=== PATIENT | male | born 1995 | race Caucasian/White ===

== ENCOUNTER 2019-06-15 16:07 | Emergency (ER) | payer SELFPAY ==
[2019-06-15 18:58] LABS: INFLUENZA A NEGATIVE (NEGATIVE); INFLUENZA B NEGATIVE (NEGATIVE); RESPIRATORY SYNCTIAL VIRUS NEGATIVE (Negative)
[2019-06-15] MEDS ORDERED: Sodium Chloride 0.9% 1000 ML 1,000 ML IV STA (19:03)
[2019-06-15] MEDS ORDERED: Zofran 4 MG/2 ML VIAL IV STA (19:03)
[2019-06-15] MEDS ORDERED: TYLENOL 325 MG PO STA (19:03)
--- NOTE | 2019-06-15 19:10 | ERPHSYRPT ---
- History of Present Illness Patient Subjective Stated Complaint: pt reports fever, sore throat and generalized body aches for 3 days. pt reports painful swallowing. Triage Nursing Assessment: pt is aox3, pupils perrl, afebrile, resps easy non labored, cap refill < 3 seconds, pt throat appear reddened, tonsils absent, pt skin appears flushed. Timing/Duration: day(s) (4) Fever Severity: moderate Fever Therapy REHAB LIAISON: Ibuprofen, Acetaminophen Associated Symptoms: chest pain Hx Tetanus, Diphtheria Vaccination/Date Given: (unk) Hx Influenza Vaccination/Date Given: No Hx Pneumococcal Vaccination/Date Given: No Immunizations Up to Date: Yes <CORNELIA PAZ - Last Filed: 06/15/19 19:06> <OMAYRA JORDAN - Last Filed: 06/15/19 20:03> - History of Present Illness Time Seen by Provider: 06/15/19 17:00 Physician History: mcgrath, fever sick 4 days (CORNELIA PAZ) Allergies/Adverse Reactions: Penicillins Allergy (Mild, Verified 06/15/19 16:46) Home Medications: No Home Meds [No Home Meds] 06/23/12 [History] - Review of Systems Constitutional: Fever, Chills, Lethargy Eyes: No Symptoms Ears, Nose, & Throat: No Symptoms Respiratory: No Cough, No Dyspnea Cardiac: No Chest Pain, No Edema, No Syncope Abdominal/Gastrointestinal: No Abdominal Pain, No Nausea, No Vomiting, No Diarrhea Genitourinary Symptoms: No Dysuria Musculoskeletal: Arthralgias, Joint Swelling, Myalgias, No Neck Pain Skin: No Rash Neurological: Headache Psychological: No Symptoms Endocrine: No Symptoms Hematologic/Lymphatic: No Symptoms Immunological/Allergic: No Symptoms <CORNELIA PAZ - Last Filed: 06/15/19 19:06> - Past Medical History Pertinent Past Medical History: No Other Medical History: irritable bowel syndrome - Past Surgical History Past Surgical History: Yes Other Surgical History: TONSILS - Social History Smoking Status: Current every day smoker How long have you smoked: 2 Exposure to second hand smoke: Yes Drug Use: none Patient Lives Alone: No <CORNELIA PAZ - Last Filed: 06/15/19 19:06> - Physical Exam General Appearance: mild distress Eye Exam: PERRL/EOMI ENT Exam: normal ENT inspection, No pharyngeal erythema, No tonsillar exudate Neck Exam: supple, full range of motion, No meningismus Respiratory Exam: normal breath sounds, lungs clear, no respiratory distress Cardiovascular/Chest Exam: normal heart sounds Gastrointestinal/Abdominal Exam: soft, normal bowel sounds, No tenderness SpO2: 96 <CORNELIA PAZ - Last Filed: 06/15/19 19:06> - Nursing Vital Signs Nursing Vital Signs: Initial Vital Signs Temperature 99.6 F 06/15/19 16:36 Pulse Rate 99 H 06/15/19 16:36 Respiratory Rate 20 06/15/19 16:36 Blood Pressure 132/90 06/15/19 16:36 O2 Sat by Pulse Oximetry 97 06/15/19 16:36 Pain Scale Pain Intensity 10 - Course Nursing assessment & vital signs reviewed: Yes <CORNELIA PAZ - Last Filed: 06/15/19 19:06> - Radiology Exams Chest X-ray Interpretation: Reviewed by me (bronchiectasis) <OMAYRA JORDAN - Last Filed: 06/15/19 20:03> Ordered Tests: Active Orders 24 hr Category Date Time Status CHEST 2 VIEWS (PA AND LAT) Stat Exams 06/15/19 19:45 Taken BLOOD CULTURE Stat Lab 06/15/19 19:30 Received CBC W DIFF Stat Lab 06/15/19 19:25 Completed CMP Stat Lab 06/15/19 19:25 Completed CULTURE,URINE Stat Lab 06/15/19 19:39 Ordered Lactic Acid Stat Lab 06/15/19 19:30 Completed UA W/RFX UR CULTURE Stat Lab 06/15/19 19:39 Ordered Medication Summary Generic Name Dose Route Start Last Admin Trade Name Freq PRN Reason Stop Dose Admin Ceftriaxone Sodium 1,000 mg 06/15/19 19:58 Rocephin 1000 Mg Inj IM 06/15/19 19:59 STAT ONE Sodium Chloride 1,000 mls @ 999 mls/hr 06/15/19 19:03 06/15/19 19:35 Sodium Chloride 0.9% 1000 Ml IV 06/15/19 20:03 999 mls/hr .Q1H1M STA Administration Discontinued Medications Generic Name Dose Route Start Last Admin Trade Name Freq PRN Reason Stop Dose Admin Acetaminophen 650 mg 06/15/19 19:03 06/15/19 19:35 Tylenol 325 Mg PO 06/15/19 19:04 650 mg STAT STA Administration Acetaminophen Confirm 06/15/19 19:32 Tylenol 325 Mg Administered 06/15/19 19:33 Dose 650 mg .ROUTE .STK-MED ONE Acetaminophen Confirm 06/15/19 19:41 Tylenol 325 Mg Administered 06/15/19 19:42 Dose 325 mg .ROUTE .STK-MED ONE Sodium Chloride Confirm 06/15/19 19:32 Sodium Chloride 0.9% 1000 Ml Administered 06/15/19 19:33 Dose 1,000 mls @ ud .ROUTE .STK-MED ONE Ondansetron HCl 4 mg 06/15/19 19:03 06/15/19 19:35 Zofran 4 Mg/2 Ml Vial IV 06/15/19 19:04 4 mg STAT STA Administration Ondansetron HCl Confirm 06/15/19 19:31 Zofran 4 Mg/2 Ml Vial Administered 06/15/19 19:32 Dose 4 mg .ROUTE .STK-MED ONE Lab/Rad Data: Laboratory Result Diagrams 06/15/19 19:25 06/15/19 19:25 Laboratory Results 06/15/19 06/15/19 06/15/19 Range/Units 19:30 19:25 19:25 WBC 9.2 (4.0-10.5) K/mm3 RBC 5.57 (4.1-5.6) M/mm3 Hgb 17.9 (12.5-18.0) gm/dl Hct 51.3 H (42-50) % MCV 92.1 (78-100) fl MCH 32.1 H (26-32) pg MCHC 34.9 (32-36) g/dl RDW 12.6 (11.5-14.0) % Plt Count 168 (150-450) K/mm3 MPV 9.8 H (6-9.5) fl Gran % 72.7 H (36.0-66.0) % Eos # (Auto) 0.04 (0-0.5) Absolute Lymphs (auto) 1.38 (1.0-4.6) Absolute Monos (auto) 1.08 (0.0-1.3) Lymphocytes % 15.0 L (24.0-44.0) % Monocytes % 11.8 (0.0-12.0) % Eosinophils % 0.4 (0.00-5.0) % Basophils % 0.1 (0.0-0.4) % Absolute Granulocytes 6.67 (1.4-6.9) Basophils # 0.01 (0-0.4) Sodium 138 (137-145) mmol/L Potassium 4.0 (3.5-5.1) mmol/L Chloride 101 (98-107) mmol/L Carbon Dioxide 27 (22-30) mmol/L Anion Gap 14.1 (5-15) MEQ/L BUN 14 (9-20) mg/dL Creatinine 0.91 (0.66-1.25) mg/dL Estimated GFR > 60.0 ML/MIN Glucose 101 (74-106) mg/dL Lactic Acid 1.1 (0.4-2.0) Calcium 9.6 (8.4-10.2) mg/dL Total Bilirubin 0.90 (0.2-1.3) mg/dL AST 21 (17-59) U/L ALT 30 (0-50) U/L Alkaline Phosphatase 63 (38-126) U/L Serum Total Protein 8.5 H (6.3-8.2) g/dL Albumin 4.7 (3.5-5.0) g/dL Influenza Type A Ag (NEGATIVE) Influenza Type B Ag (NEGATIVE) RSV (PCR) (Negative) 06/15/19 Range/Units 18:19 WBC (4.0-10.5) K/mm3 RBC (4.1-5.6) M/mm3 Hgb (12.5-18.0) gm/dl Hct (42-50) % MCV (78-100) fl MCH (26-32) pg MCHC (32-36) g/dl RDW (11.5-14.0) % Plt Count (150-450) K/mm3 MPV (6-9.5) fl Gran % (36.0-66.0) % Eos # (Auto) (0-0.5) Absolute Lymphs (auto) (1.0-4.6) Absolute Monos (auto) (0.0-1.3) Lymphocytes % (24.0-44.0) % Monocytes % (0.0-12.0) % Eosinophils % (0.00-5.0) % Basophils % (0.0-0.4) % Absolute Granulocytes (1.4-6.9) Basophils # (0-0.4) Sodium (137-145) mmol/L Potassium (3.5-5.1) mmol/L Chloride (98-107) mmol/L Carbon Dioxide (22-30) mmol/L Anion Gap (5-15) MEQ/L BUN (9-20) mg/dL Creatinine (0.66-1.25) mg/dL Estimated GFR ML/MIN Glucose (74-106) mg/dL Lactic Acid (0.4-2.0) Calcium (8.4-10.2) mg/dL Total Bilirubin (0.2-1.3) mg/dL AST (17-59) U/L ALT (0-50) U/L Alkaline Phosphatase (38-126) U/L Serum Total Protein (6.3-8.2) g/dL Albumin (3.5-5.0) g/dL Influenza Type A Ag NEGATIVE (NEGATIVE) Influenza Type B Ag NEGATIVE (NEGATIVE) RSV (PCR) NEGATIVE (Negative) - Progress Progress: improved Counseled pt/family regarding: lab results, diagnosis, need for follow-up, rad results <OMAYRA JORDAN - Last Filed: 06/15/19 20:03> - Progress Progress Note: 06/15/19 19:[address] Jordan (CORNELIA PAZ) <CORNELIA PAZ - Last Filed: 06/15/19 19:06> - Departure Departure Disposition: Home Critical Care Time: No <OMAYRA JORDAN - Last Filed: 06/15/19 20:03> - Departure Clinical Impression: Bronchiectasis Qualifiers: Bronchiectasis type: with acute lower respiratory infection Qualified Code(s): J47.0 - Bronchiectasis with acute lower respiratory infection Condition: Stable Referrals: DOCTOR,NO FAMILY [Primary Care Provider] - Instructions: Fever, Adult (DC), Bronchiectasis in Adults Additional Instructions: Discharge/Care Plan AGUEROCHRISTIAN YANEZ was seen on 06/15/19 in the Emergency Room. The patient was counseled regarding Diagnosis,Lab results, Imaging studies, need for follow up and when to return to the Emergency Room. Prescriptions given: Discharge Note I have spoken with the patient and/or caregivers. I have explained the patient' s condition, diagnosis and treatment plan based on the information available to me at this time. I have answered the patient's and/or caregiver's questions and addressed any concerns. The patient and/or caregivers have as good understanding of the patient's diagnosis, condition and treatment plan as can be expected at this point. The vital signs have been stable. The patient's condition is stable and appropriate for discharge from the emergency department. The patient will pursue further outpatient evaluation with the primary care physician or other designated or consulting physician as outlined in the discharge instructions. The patient and/or caregivers are agreeable to this plan of care and follow-up instructions have been explained in detail. The patient and/or caregivers have received these instruction. The patient/and or caregivers are aware that any significant change in condition or worsening of symptoms should prompt an immediate return to this or the closest emergency department or call 911. CHRISTIAN AGUERO was seen on 06/15/19 n the Emergency Room. At that time you were treated for an emergent condition, during your visit Laboratory, Radiology and/or other procedures may have been ordered. It is very important that you follow-up with your Primary Care Physician NO FAMILY DOCTOR within the next 24- 48 hours to review your Emergency Room visit and the final results of testing that was ordered. Some test results such as Urine Cultures, Blood Cultures, and other cultures if ordered will not be finalized for 24-48 hours. If you do not have a Primary Care Provider please call the medical records department at [phone] to obtain a copy of your results or you may sign into our patient portal to obtain these results by visiting us @ [email or web address] and completing the following steps: 1. Click on the Patient Portal link 2. Click the Patient Self Enrollment Link to complete the enrollment form and entering your 3. Once the enrollment form is completed you will receive an email with a temporary ID and password at the email address you provided. 4. Next choose a user name and password. Your user name must be at least 4 characters long and your password must be at least 4 characters long. 5. Choose a security question from the list and provide your answer to the question. If you already have signed into the Health Portal you may access your Health Care Information 10/01 by the following steps: 1. Login to our website @ [email or web address] 2. Enter your original user name and password. FAQS The [facility] Health Portal is an online tool that contains your Lab Results, Radiology Reports, Visit History, Discharge Instructions and Health Summary Lab and Radiology Results will not be available for 72 hours on the portal. The Portal is a secure site, passwords are encryted and URLs are re-written so they cannot be copied and pasted. You and authorized family members are the only ones who can access your Portal. Also there is a timeout feature that protects your information if you leave the Portal page open. If you have technical difficulty please use the Contact Us link on the page this will allow you to submit any questions you have regarding the Portal or you may contact the Medical Record Department at [phone]. Prescriptions: Guaifenesin/Codeine Phos [Cheratussin AC Syrup] 5 ml PO Q6H #240 liquid Levofloxacin [Levaquin 500 MG Tablet] 500 mg PO QAM #10 tablet
[2019-06-15] MEDS ORDERED: Zofran 4 MG/2 ML VIAL ONE (19:31)
[2019-06-15] MEDS ORDERED: Sodium Chloride 0.9% 1000 ML 1,000 ML ONE (19:32)
[2019-06-15] MEDS ORDERED: TYLENOL 325 MG ONE ×2 (19:32→19:41)
[2019-06-15 19:38] LABS: Absolute Neutrophil Ct (ANC) 6.67 (1.4-6.9); BASOPHIL % 0.1 % (0.0-0.4); Basophil (Absolute #) 0.01 (0-0.4); Eosinophil % 0.4 % (0.00-5.0); Eosinophil (Absolute #) 0.04 (0-0.5); Hematocrit 51.3 % (42-50); Hemoglobin 17.9 gm/dl (12.5-18.0); Lymphocyte (Absolute #) 1.38 (1.0-4.6); Mean Cell Volume 92.1 fl (78-100); Mean Corpuscular Hemoglobin 32.1 pg (26-32); Mean Corpuscular Hgb Concent. 34.9 g/dl (32-36); Mean Platelet Volume 9.8 fl (6-9.5); Monocyte (Absolute #) 1.08 (0.0-1.3); Monocytes % 11.8 % (0.0-12.0); Neutrophil % 72.7 % (36.0-66.0); Platelet Count 168 K/mm3 (150-450); Red Blood Count 5.57 M/mm3 (4.1-5.6); Red Cell Distribution Width 12.6 % (11.5-14.0); White Blood Count 9.2 K/mm3 (4.0-10.5)
[2019-06-15 19:47] LABS: ALBUMIN 4.7 g/dL (3.5-5.0); ALKALINE PHOSPHATASE 63 U/L (38-126); ANION GAP 14.1 MEQ/L (5-15); BLOOD UREA NITROGEN 14 mg/dL (9-20); CHLORIDE 101 mmol/L (98-107); Calcium 9.6 mg/dL (8.4-10.2); Carbon Dioxide 27 mmol/L (22-30); Creatinine 1 0.91 mg/dL (0.66-1.25); Glucose 101 mg/dL (74-106); SGOT/AST 21 U/L (17-59); SGPT/ALT 30 U/L (0-50); SODIUM 138 mmol/L (137-145); Total Protein 8.5 g/dL (6.3-8.2)
[2019-06-15 19:55] VITALS: O2SAT 97
[2019-06-15] MEDS ORDERED: Rocephin 1000 MG INJ IM ONE (19:58)
[2019-06-15 20:03] LABS: Appearance CLEAR (CLEAR); Bilirubin NEGATIVE (NEGATIVE); Blood NEGATIVE Ery/ul (0-5); Glucose NEGATIVE (NEGATIVE); Ketones TRACE (NEGATIVE); Leukocyte Esterase NEGATIVE (NEGATIVE); Mucus SLIGHT /HPF (NEGATIVE); Nitrite NEGATIVE (NEGATIVE); Protein,Urine Dip NEGATIVE (Negative); RBC 0-2 /HPF (0-2); Specific Gravity 1.028 (1.005-1.025); Urobilinogen 4 mg/dL (0-1)
[2019-06-15] MEDS ORDERED: Rocephin 1000 MG INJ ONE (20:05)
[2019-06-15 20:47] VITALS: BP 124/57; PULSE 102
--- NOTE | 2019-06-15 22:32 | XRAY ---
Indication: Fever and sore throat. Comparison: None PA/lateral chest demonstrates normal heart, lungs, and bony thorax.
== END 2019-06-15 20:48 | disposition home or self-care (01) ==
LOC: ED 16:07
DX: J47.0 Bronchiectasis with acute lower respiratory infection (principal)
CPT/HCPCS: 36415; 71046; 80053; 81001; 83605; 85025; 87040; 87086; 87631; 96360; 96372; 96374; 99284; J0696; J2405; A9270-GY